=== PATIENT | female | born 1985 | race Caucasian/White ===

== ENCOUNTER 2017-12-11 14:36 | Emergency (ER) | payer MEDICAID ==
[~2017-12-11] VITALS: Ht 170.2 cm; Wt 72.7 kg
[~2017-12-11 14:36] MED LIST: CEPHALEXIN500 M1 PO; CLEOCIN HC150 MG/CAP PO; FLEXERIL 1010 MG/TAB PO; LEXAPRO 10MG10 MG PO; MOTRIN 600600 MG/TAB PO; NAPROSYN500 MG PO; NORCO 325 MG-51 TAB PO; PEN-VEE K500 MG PO; PERCOCET 325 MG1 TA2 PO; SENOKOT S 50 MG1 TAB PO; SPRINTEC 35 MCG1 TAB PO; TYLENOL W/COD1 UDTAB PO; VOLTAREN 75 DR75 MG PO
[2017-12-11 14:43] VITALS: BP 116/56; PULSE 96; TEMP 99.9
[2017-12-11] MEDS ORDERED: PRENATAL (14:51)
[2017-12-11] MEDS ORDERED: PEN-VEE K500 MG PO (15:04)
== END 2017-12-11 15:11 | disposition home or self-care (01) ==
LOC: COL.ER 14:36
DX: O99.89 Other specified diseases and conditions complicating pregnancy, childbirth and the puerperium (principal); K08.89 Other specified disorders of teeth and supporting structures; Z3A.26 26 weeks gestation of pregnancy; Z88.6 Allergy status to analgesic agent; Z87.891 Personal history of nicotine dependence

== ENCOUNTER 2018-04-30 14:49 | Emergency (ER) | payer MEDICAID ==
[~2018-04-30] VITALS: Ht 170.2 cm; Wt 65.0 kg
[~2018-04-30 14:49] MED LIST changes: +IBU600 MG PO; +PRENATAL
[2018-04-30] MEDS ORDERED: PEPCID 20MG TAB20 MG PO (16:16)
[2018-04-30] MEDS ORDERED: PREDNISONE20 MG PO (16:16)
[2018-04-30 17:47] VITALS: BP 98/57; PULSE 67
== END 2018-04-30 17:47 | disposition home or self-care (01) ==
LOC: COL.ER 14:49
DX: T78.1XXA Other adverse food reactions, not elsewhere classified, initial encounter (principal); F17.210 Nicotine dependence, cigarettes, uncomplicated
CPT/HCPCS: J1200; J2930; J7030

== ENCOUNTER 2021-11-08 20:32 | Inpatient (IN) | payer MEDICAID ==
[~2021-11-08] VITALS: Ht 170.2 cm; Wt 80.5 kg
[~2021-11-08 20:32] MED LIST changes: +PEPCID 20MG TAB20 MG PO; +PREDNISONE20 MG PO
--- NOTE | 2021-11-08 20:45 | NUR ---
2044- PATIENT AMBULATORY TO THE UNIT. PATIENT OF DR. FRANCOIS WHO IS A AT 37.5. PATIENT PRESENTS STATING HER WATER BROKE AROUND 1999 AT HOME. REPORTS GFM, NO BLEEDING AND OCCASIONAL CRAMPING WITH CONTRACTIONS. 2046- EFM AND TOCO ON AND TRACING, VITALS TAKEN, ASSESSMENT COMPLETED. 2049- SVE /-3 WITH POSITIVE AMNIOTRACE. PLAN OF CARE DISCUSSED. PATIENT DENIES FURTHER NEEDS OR QUESTIONS AT THIS TIME. CALL LIGHT WITHIN REACH.
[2021-11-08 21:00] VITALS: BP 125/67; PULSE 101; TEMP 98.3
[2021-11-08 21:30] VITALS: BP 128/65; PULSE 96
[2021-11-08 21:58] LABS: BASO % 0.3 % (0.0-2.0); EOS # 0.1 K/mm3 (0.0-0.7); EOS % 1.1 % (0.0-4.0); GRAN # 6.4 K/mm3 (1.4-6.5); GRAN % 71.1 % (42.2-75.2); HEMOGLOBIN 9.6 g/dl (12.5-16.0); LYMPH # 1.8 K/mm3 (1.2-3.4); LYMPH % 19.6 % (20.0-51.0); MEAN CELL VOLUME 82 fl (80.0-100.0); MEAN CORPUSCULAR HEMOGLOBIN 27 pg (27-31); MEAN CORPUSCULAR HGB CONC 33 g/dl (33.0-37.0); MEAN PLATELET VOLUME 9.9 fl (7.4-10.4); MONO # 0.6 K/mm3 (0.1-0.6); PLATELET COUNT 258 K/mm3 (130-400); RED BLOOD COUNT 3.53 M/mm3 (4.10-5.30); REDCELL DISTRIBUTION WIDTH-CV 14.9 % (11.5-14.5)
[2021-11-08 22:00] VITALS: BP 121/60; PULSE 85
[2021-11-08 22:09] LABS: TRICYCLIC ANTIDEPRESS URINE NEGATIVE
[2021-11-08 22:30] VITALS: BP 118/67; PULSE 89
[2021-11-08 23:30] VITALS: BP 135/77; PULSE 89
[2021-11-09] VITALS (23 sets, daily range): BP systolic 97–134; BP diastolic 52–77; PULSE 56–88; TEMP 97.1–98
--- NOTE | 2021-11-09 00:10 | NUR ---
[facility] into room for epidural placement. Pt moved to sit on edge of bed for epidural placement, monitor tracing maternal HR.
--- NOTE | 2021-11-09 03:10 | NUR ---
Dr Dykes in. SVE C. Set-up for delivery. [address] Dykes.
--- NOTE | 2021-11-09 03:30 | NUR ---
Placenta delivers spont with 3 vessel cord. Pitoicn gtt to bolus rate. Dr Dykes retrieves membranes and small ?placenta fragments. Bajo curettage wit return of fragments. Pt tolerates well.
--- NOTE | 2021-11-09 03:50 | NUR ---
Dr Dykes completes curettage, fundus firm, minimal lochia, no clots. Pericare complete, ice pack to perineum, bed together.
--- NOTE | 2021-11-09 05:30 | NUR ---
Attempt up to bathroom. Stands at bedside, "states my R leg is still a little tingly" To bathroom per wheelchair, unable to void @ this time, performs own pericare. To room via wheelchair, transfers self to bed. Pt instructed to call for assistance when needs to get out of bed, Verbalizes understanding.
--- NOTE | 2021-11-09 10:31 | NUR ---
ELIZABETH and ELIZABETH stringer responded to consult. The patient's UDS was postive for methamphetamines, amphetamines, and cannabinoids. She also had late care at 33 weeks. The baby's cord blood is pending and they will be collecting a UDS on baby. Baby will be here five days for monitoring. ELIZABETH and ELIZABETH stringer met with the patient. The patient lives in [place] with her boyfriend (father of baby), Murray Belle, and her two children: Lisseth Soriano (6-years-old) and Ksenia Belle (3-years-old). Ksenia is also Murray's child. The patient states that she has not worked for four years, but that Murray works and is their main source of income. She states that she has a crib/bassinet and carseat. She states that she has not applied for WIC yet for baby, but has for her other two children and knows the process. ELIZABETH addressed the patient's late care. The patient states that she had switched controls and then took some at home tests, but they came back negative. She states that she started gaining weight and her stomach became more profound, so she went to [facility] and took a test there. She states that this is when the test came back positive and then she went to [facility]. ELIZABETH addressed the patient's positive UDS for meth, amphetamines, and cannabinoids. The patient denied use for both the methamphetamines and amphetamines. She states that she has never used either and has not taking any medication that would have that. She does admit to marijuana use and states that she smoked and took a couple gummies a couple weeks ago. She believes that may be the gummies or marijuana that she smoked might has been laced with the methamphetamines. The patient denies any other drug use, besides the cannabinoids, throughout . She states that Murray does not use any drugs either, that he just smokes tobacco and drinks beer. She is not interested in any treatment for drug use. ELIZABETH provided the patient with [facility] Resource Guide. ELIZABETH updated Dr. Whyte, Professor Of Sport Management. ELIZABETH made a CPS report. IntakeID#[id number]. ELIZABETH requested that a worker visit the patient while here, along with a home visit. She
--- NOTE | 2021-11-09 15:53 | NUR ---
The patient's RN, Ileana, notified SW that the baby's UDS came back positive for methamphetamines and amphetamines. SW contacted Andreina Hu, CPS supervisor dog license officer, and notified her on the above. Andreina states that the patient's report was screened in and it has a 72 hour response time. She states that she will notify the assigned worker of the baby's UDS coming back positive.
[2021-11-10 08:30] VITALS: BP 107/51; PULSE 67; TEMP 97.8
--- NOTE | 2021-11-10 08:52 | NUR ---
ELIZABETH staffed with Dr. Whyte about having [facility] notified to follow up with mom and to check-in on her other two children, due to her and the baby testing positive for methamphetamines and amphetamines. Dr. Whyte would like to pursue with this. ELIZABETH contacted [facility] and made a report. Dispatch states that they will have an officer up to the hospital to meet with the patient soon and to do a welfare check on the patient's other two children. ELIZABETH notified the patient's RN.
--- NOTE | 2021-11-10 12:47 | NUR ---
1247-This RN discussed RCPD visit with SW. SW verfied RCPD okay with patient proceeding with discharge to boarder status and will be in contact with patient. Discharge instruction reviewed with patient and patient discharged to boarder status.
--- NOTE | 2021-11-10 12:59 | NUR ---
Officer Roxie arrived to the hospital and wanted a statement from this SW. SW provided him with a statement about the patient and the baby and the concerns for the other two children. Officer Roxie states that he needs to take this information back to his Strategic Account Manager and then they will move forward with the case and will come back up to the hospital to interview the patient. ELIZABETH updated the patient's RN. The patient's RN then informed ELIZABETH that the patient is ready to be discharged from the hospital and she can come and go to see baby, since baby has to be here another 4 days for monitoring. The patient would like to leave. ELIZABETH notified Dispatch at [facility]. Dispatch checked with Officer Faustin and the patient is free to go. Terry Faustin plans to follow up with the patient later and can do this at her home. ELIZABETH contacted and updated Andreina Hu, [facility] Strategic Account Manager. Andreina states that the assigned worker for this case is out today, but she will be notifying the assigned worker on the above and the assigned worker will either meet the patient at her home or the hospital.
--- NOTE | 2021-11-16 14:10 | NUR ---
Patient's infant's cord blood was positive for amphetamines, methamphetamines, and cannabinoids. sheet metal worker maintenance filed CPS report #[id number], contacted DCF workerRose Mary, and advised, and faxed results to CPS.
== END 2021-11-10 12:57 | disposition home or self-care (01) | DRG 797 ==
LOC: LDRO 20:32 → LDR 21:01 → OB 21:01
PROVIDERS: ADMIT Obstetrics & Gynecology
PROC: 10E0XZZ Delivery of Products of Conception, External Approach (ICD-10-PCS; principal; 2021-11-09)
PROC: 10D17ZZ Extraction of Products of Conception, Retained, Via Natural or Artificial Opening (ICD-10-PCS; 2021-11-09)
PROC: 0HQ9XZZ Repair Perineum Skin, External Approach (ICD-10-PCS; 2021-11-09)
PROC: 0UQMXZZ Repair Vulva, External Approach (ICD-10-PCS; 2021-11-09)
DX: O99.02 Anemia complicating childbirth (principal); O99.324 Drug use complicating childbirth; Z37.0 Single live birth; D64.9 Anemia, unspecified; O99.334 Smoking (tobacco) complicating childbirth; F17.210 Nicotine dependence, cigarettes, uncomplicated; F19.90 Other psychoactive substance use, unspecified, uncomplicated; O73.0 Retained placenta without hemorrhage; O70.9 Perineal laceration during delivery, unspecified; O71.82 Other specified trauma to perineum and vulva; Z3A.37 37 weeks gestation of pregnancy
CPT/HCPCS: J2590; J7120